=== PATIENT | male | born 1980 | race Caucasian/White ===

== ENCOUNTER 2024-03-10 12:45 | Emergency (ER) | payer BC ==
[2024-03-10 13:02] VITALS: RESP 20; TEMP 98.2; BMI 31.3
[2024-03-10] MEDS ORDERED: LIDOCAINE HCL 1%, 10 MG/ML (20ML VIAL) ONE (13:16)
[2024-03-10] MEDS ORDERED: ACETAMINOPHEN 500 MG TABLET (FP) ONE (13:29)
[2024-03-10] MEDS: ACETAMINOPHEN 500 MG TABLET (FP) PO ONE (13:30)
[2024-03-10 14:27] VITALS: BP 124/96; PULSE 80
== END 2024-03-10 14:33 | disposition home or self-care (01) ==
LOC: FER 12:45
PROC: 0W9F3ZZ Drainage of Abdominal Wall, Percutaneous Approach (ICD-10-PCS; principal; 2024-03-10)
DX: L02.211 Cutaneous abscess of abdominal wall (principal); R05.9 Cough, unspecified; R09.81 Nasal congestion
CPT/HCPCS: 87070; 87186; 87205; 99283-25